=== PATIENT | male | born 2000 | race Caucasian/White ===

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

== ENCOUNTER 2020-02-29 06:32 | Emergency (ER) | payer MEDICAID ==
[2020-02-29 06:54] VITALS: BP 127/78; PULSE 81
--- NOTE | 2020-02-29 07:08 | EDM.PDOC ---
ED HPI GENERAL MEDICAL PROBLEM - General Chief Complaint: Skin Complaint Stated Complaint: REACTION TO MEDS Time Seen by Provider: 02/29/20 07:00 Source of Information: Reports: Patient, Old Records History Limitations: Reports: No Limitations - History of Present Illness INITIAL COMMENTS - FREE TEXT/NARRATIVE: Ana is a 19-year-old male presenting to the ED for evaluation of a rash along the belt line predominantly on the left side that has been developing over the last several days. Patient has attributed to starting his citalopram on 02/21/2020. He was started on this medication for modulation of his mood swings related to his bipolar disorder and disruptive behavior disorder. The patient is employed at [employer] and he states that he is trying to modulate the sy mptoms so that it does not affect his ability to do his job. He reports that after taking the citalopram for several days he started develop a couple red dots on his belt line that were quite itchy. Since then the rash has continued to spread what appears to be along the dermatome. The patient is unclear as to whether or not he had chickenpox as a child, however, he was vaccinated for varicella in 2005. - Related Data Allergies Allergy/AdvReac Type Severity Reaction Status Date / Time No Known Allergies Allergy Verified 02/29/20 06:51 Home Meds: Home Meds ARIPiprazole [Abilify Maintena] 300 mg IM Q30D 02/20/19 [History] Acyclovir 800 mg PO 5XDAY 5 Days #24 tablet 02/29/20 [Rx] Citalopram Hydrobromide [Celexa] 10 mg PO DAILY 02/29/20 [History] hydrOXYzine HCL [Atarax] 25 mg PO Q6H PRN #10 tab 02/29/20 [Rx] Past Medical History HEENT History: Reports: Impaired Vision Respiratory History: Reports: Other (See Below) Other Respiratory History: RSV as child Gastrointestinal History: Reports: Gastritis Neurological History: Reports: Other (See Below) Other Neuro History: head injuries Psychiatric History: Reports: Autism, Psych Hospitalization(s), Other (See Below) Other Psychiatric History: tics, attachment disorder, adjustment disorder with mixed disturbance of emotions and conduct Dermatologic History: Reports: Other (See Below) Other Dermatologic History: skin disorder that causes itches - Past Surgical History Head Surgeries/Procedures: Reports: None HEENT Surgical History: Reports: None Respiratory Surgical History: Reports: None GI Surgical History: Reports: None Neurological Surgical History: Reports: None Dermatological Surgical History: Reports: None Social & Family History - Tobacco Use Tobacco Use Status *Q: Never Tobacco User Second Hand Smoke Exposure: No - Caffeine Use Caffeine Use: Reports: Soda - Recreational Drug Use Recreational Drug Use: No ED ROS GENERAL - Review of Systems Review Of Systems: See Below Constitutional: Reports: No Symptoms HEENT: Reports: No Symptoms. Denies: Throat Pain, Throat Swelling Respiratory: Reports: No Symptoms. Denies: Shortness of Breath, Wheezing Cardiovascular: Reports: No Symptoms Endocrine: Reports: No Symptoms GI/Abdominal: Reports: No Symptoms : Reports: No Symptoms Musculoskeletal: Reports: No Symptoms Skin: Reports: Pruritis, Rash Neurological: Reports: No Symptoms Psychiatric: Reports: No Symptoms Hematologic/Lymphatic: Reports: No Symptoms Immunologic: Reports: No Symptoms. Denies: Anaphylaxis ED EXAM, SKIN/RASH Exam: See Below Exam Limited By: No Limitations General Appearance: Alert, WD/WN, No Apparent Distress Neurological: Alert, Oriented, Normal Cognition, No Motor/Sensory Deficits Skin: Excoriations, Rash (A coalescent vesicular type rash along the belt line on the left. The rash is quite pruritic with varying degrees of excoriation. There does not appear to be any secondary erythema beyond the initial rash.) Associated features: Warmth, Inflammation, Weeping Lymphatic: No Adenopathy Course - Vital Signs Last Recorded V/S: Last Vital Signs Temp 36.1 C 02/29/20 06:53 Pulse 81 02/29/20 06:53 Resp 16 02/29/20 06:53 BP 127/78 02/29/20 06:53 Pulse Ox 96 02/29/20 06:53 - Re-Assessments/Exams Free Text/Narrative Re-Assessment/Exam: 02/29/20 07:59 the patient is presenting with symptoms that he is concerned are related to his citalopram as the patient has only been on this medication for 6 days at this point. I think it would be prudent to stop this medication, however, I am also concerned that this may be development of herpes zoster. The patient is unaware whether he had chickenpox as a child but he did get the varicella vaccine in 2005. Review of up-to-date concerning herpes zoster shows that receiving the varicella vaccine actually increases your risk of developing herpes zoster as an adult. Although the patient is only 19, I cannot completely exclude this as being the source of his rash as it is very consistent with the coalescing vesicles with varying degrees of excoriation. As result, we will start the patient on acyclovir 800 mg 5 times a day for 5 days. I also am going to prescribe him hydroxyzine 25 mg 4 times daily as needed for itching. I encouraged the patient to contact his primary care provider, Niels Medina MD to let him know that we have discontinued the citalopram at this time. I do not believe that steroids are warranted nor is an EpiPen as there are no other signs of allergic reaction. Departure - Departure Time of Disposition: 08:04 Disposition: Home, Self-Care 01 Condition: Good Clinical Impression: Pruritic erythematous rash Herpes zoster Qualifiers: Herpes zoster complications: without complications Qualified Code(s): B02.9 - Zoster without complications - Discharge Information *PRESCRIPTION DRUG MONITORING PROGRAM REVIEWED*: Not Applicable *COPY OF PRESCRIPTION DRUG MONITORING REPORT IN PATIENT HANNAH: Not Applicable Instructions: Rash, Adult, Shingles, [id number] Referrals: PCP,None [Primary Care Provider] - Care Plan Goals: I believe that you have the onset of shingles and I am starting you on a medication called acyclovir which will help treat this. You will need to take 1 tablet 5 times a day for the next 5 days. Make sure that you do not skip a dose. In addition I am giving you a prescription for hydroxyzine 1 tablet every 6 hours as needed to control your itch. The rash may worsen over the course of the next 1 to 2 days before it gets better. You may develop some burning in the area which is typical for this type of rash. I would like you to contact Dr. Medina to let him know that I recommended we stop the citalopram until we know for sure that this is shingles. Sepsis Event Note (ED) - Evaluation Sepsis Screening Result: No Definite Risk - Focused Exam Vital Signs: Vital Signs Temp Pulse Resp BP Pulse Ox 02/29/20 06:53 36.1 C 81 16 127/78 96 - Problem List & Annotations (1) Herpes zoster SNOMED Code(s): 4211494 Code(s): B02.9 - ZOSTER WITHOUT COMPLICATIONS Status: Acute Priority: Low Current Visit: Yes Qualifiers: Herpes zoster complications: without complications Qualified Code(s): B02.9 - Zoster without complications (2) Pruritic erythematous rash SNOMED Code(s): 76819971, 742616853 Code(s): L29.8 - OTHER PRURITUS Status: Acute Priority: Low Current Visit: Yes - Problem List Review Problem List Initiated/Reviewed/Updated: Yes
[2020-02-29] MEDS ORDERED: Acyclovir 200 MG Cap PO ONE (07:17)
[2020-02-29] MEDS ORDERED: hydrOXYzine HCl 25 MG Tab PO ONE (07:21)
== END 2020-02-29 08:13 | disposition home or self-care (01) ==
LOC: JP.ED 06:32
DX: B02.9 Zoster without complications (principal); F84.0 Autistic disorder; Z79.899 Other long term (current) drug therapy
CPT/HCPCS: 36415; 85025; 86140; 99283; A9270

== ENCOUNTER 2020-04-13 23:18 | Emergency (ER) | payer MEDICAID ==
[2020-04-14 00:06] VITALS: BP 132/85; PULSE 70
[2020-04-14] MEDS ORDERED: hydrOXYzine HCl 25 MG Tab PO ONE (00:17)
--- NOTE | 2020-04-14 00:17 | EDM.PDOC ---
ED HPI GENERAL MEDICAL PROBLEM - General Chief Complaint: Skin Complaint Stated Complaint: RASH Time Seen by Provider: 04/14/20 00:06 Source of Information: Reports: Patient History Limitations: Reports: No Limitations - History of Present Illness INITIAL COMMENTS - FREE TEXT/NARRATIVE: Ana a 19-year-old male presenting to the ED with a rash. Patient was seen by me on 02/29/2020 after starting citalopram and initially it was on unilateral distribution in a dermatome suggestive for this being shingles. The rash has not become much more disseminated and involves the arms, legs, trunk, groin, and perirectal area. The rash is exquisitely pruritic and there are number of deep excoriations from the patient repeatedly scratching to the point that he is bleeding. There is an infrapannicular rash that now appears to be cellulitic from excoriation of this region. The patient denies any new solvents at work, no new detergents, no new foods, the only changes are the recent start of Abilify on 02/21/2020 and citalopram on 02/29/2020. The patient has completed a full course of the acyclovir without any improvement. - Related Data Allergies Allergy/AdvReac Type Severity Reaction Status Date / Time No Known Allergies Allergy Verified 04/14/20 00:06 Home Meds: Home Meds ARIPiprazole [Abilify Maintena] 300 mg IM Q30D 02/20/19 [History] Acyclovir 800 mg PO 5XDAY 5 Days #24 tablet 02/29/20 [Rx] Citalopram Hydrobromide [Celexa] 10 mg PO DAILY 02/29/20 [History] hydrOXYzine pamoate [Hydroxyzine Pamoate] 25 mg PO Q6H PRN #30 capsule 04/14/20 [Rx] Past Medical History HEENT History: Reports: Impaired Vision Respiratory History: Reports: Other (See Below) Other Respiratory History: RSV as child Gastrointestinal History: Reports: Gastritis Neurological History: Reports: Other (See Below) Other Neuro History: head injuries Psychiatric History: Reports: Autism, Psych Hospitalization(s), Other (See Be low) Other Psychiatric History: tics, attachment disorder, adjustment disorder with mixed disturbance of emotions and conduct Dermatologic History: Reports: Other (See Below) Other Dermatologic History: skin disorder that causes itches - Past Surgical History Head Surgeries/Procedures: Reports: None HEENT Surgical History: Reports: None Respiratory Surgical History: Reports: None GI Surgical History: Reports: None Neurological Surgical History: Reports: None Dermatological Surgical History: Reports: None Social & Family History - Caffeine Use Caffeine Use: Reports: Soda ED ROS GENERAL - Review of Systems Review Of Systems: See Below Constitutional: Reports: No Symptoms HEENT: Reports: No Symptoms Respiratory: Reports: No Symptoms Cardiovascular: Reports: No Symptoms Endocrine: Reports: No Symptoms GI/Abdominal: Reports: No Symptoms : Reports: No Symptoms Musculoskeletal: Reports: No Symptoms Skin: Reports: Pruritis, Rash (A maculopapular rash on the arms, legs, chest, back, abdomen, and perirectal area. There is no evidence for a herald patch.), Erythema, Wound Neurological: Reports: No Symptoms Psychiatric: Reports: No Symptoms Hematologic/Lymphatic: Reports: No Symptoms Immunologic: Reports: No Symptoms ED EXAM, SKIN/RASH Exam: See Below Exam Limited By: No Limitations General Appearance: Alert, Mild Distress Respiratory/Chest: No Respiratory Distress, Lungs Clear, Normal Breath Sounds Cardiovascular: Normal Peripheral Pulses, Regular Rate, Rhythm, No Murmur Neurological: Alert, Oriented, Normal Cognition, No Motor/Sensory Deficits Skin: Erythema, Rash (Filler papular rash disseminated throughout the body sparing the face and head. There is no evidence for herald patch. The rash is very pruritic. There is excoriations inferior to the panniculus from deep excoriation which is likely now cellulitic. He has deep excoriations on the right leg.) Location, Skin: Chest, Abdomen, Back, Upper Extremity, Right, Upper Extremity, Left, Lower Extremity, Right, Lower Extremity, Left, Perirectal Characteristics: Maculopapular Associated features: Warmth (Below the panniculus), Tenderness (The panniculus), Inflammation Lymphatic: No Adenopathy Course - Vital Signs Last Recorded V/S: Last Vital Signs Temp 36.6 C 04/14/20 00:05 Pulse 70 04/14/20 00:05 Resp 16 04/14/20 00:05 BP 132/85 04/14/20 00:05 Pulse Ox 99 04/14/20 00:05 - Re-Assessments/Exams Free Text/Narrative Re-Assessment/Exam: 04/14/20 00:26 the rash would be consistent with Pityriasis rosea except there is no evidence for a herald patch. It is a maculopapular rash with a rough texture that is disseminated throughout the body excluding the head or face. The area under the panniculus appears to be cellulitic from no deep excoriation. He also has deep excoriations on the right lower extremity. My plan is to put him on Keflex for the cellulitis on the abdomen. We will also put him on hydroxyzine for the itching. The patient should follow-up on Wednesday with his primary care provider to discuss whether this is a reaction to his citalopram or Abilify. I do think that he will probably need to be seen by dermatology for skin biopsy to further define what is causing his rash. Initially we thought that this may have been herpes zoster and put him on acyclovir, however, there is been no improvement and now it has become more disseminated. I do not have much else to offer him in the ER at this time. Departure - Departure Time of Disposition: 00:29 Disposition: Home, Self-Care 01 Clinical Impression: Pruritic rash, Cellulitis of abdominal wall - Discharge Information *PRESCRIPTION DRUG MONITORING PROGRAM REVIEWED*: Not Applicable *COPY OF PRESCRIPTION DRUG MONITORING REPORT IN PATIENT HANNAH: Not Applicable Instructions: Cellulitis, Adult, Rash, Adult, [id number] Referrals: PCP,None [Primary Care Provider] - Care Plan Goals: The plan is to put you on hydroxyzine for the itch. We will give you a dose here in the emergency room and then I have a prescription for you to fill at the pharmacy in the morning. I am also putting you on Keflex which is an antibiotic for the skin infection on your abdomen. This is available in the [employer] machine in the lobby of the ER so that you can start at this evening. I would recommend following up with your primary care provider who is prescribing the Abilify and citalopram and discuss with them if this possibly is due to those medications. You may also require a referral to dermatology for further evaluation would need to come from your primary care provider. Sepsis Event Note (ED) - Focused Exam Vital Signs: Vital Signs Temp Pulse Resp BP Pulse Ox 04/14/20 00:05 36.6 C 70 16 132/85 99 - Problem List & Annotations (1) Cellulitis of abdominal wall SNOMED Code(s): 00013558 Code(s): L03.311 - CELLULITIS OF ABDOMINAL WALL Status: Acute Priority: Medium Current Visit: Yes (2) Pruritic rash SNOMED Code(s): 46762777 Code(s): L28.2 - OTHER PRURIGO Status: Acute Priority: Medium Current Visit: Yes - Problem List Review Problem List Initiated/Reviewed/Updated: Yes
== END 2020-04-14 00:51 | disposition home or self-care (01) ==
LOC: JP.ED 23:18
DX: R21 Rash and other nonspecific skin eruption (principal); L03.311 Cellulitis of abdominal wall
CPT/HCPCS: 99282; 99283; A9270

== ENCOUNTER 2020-05-25 13:27 | Emergency (ER) | payer MEDICAID ==
[2020-05-25 14:31] VITALS: BP 113/80; PULSE 94
--- NOTE | 2020-05-25 15:36 | EDM.PDOC ---
ED HPI GENERAL MEDICAL PROBLEM - General Chief Complaint: Respiratory Problem Stated Complaint: COUGH Time Seen by Provider: 05/25/20 15:32 Source of Information: Reports: Patient, RN Notes Reviewed History Limitations: Reports: No Limitations - History of Present Illness INITIAL COMMENTS - FREE TEXT/NARRATIVE: 19-year-old male presents emergency department like to be tested for Covid before he goes to work has had a cough for 2 days Throat Pain Score (Numeric/FACES): 6 - Related Data Allergies Allergy/AdvReac Type Severity Reaction Status Date / Time No Known Allergies Allergy Verified 05/25/20 14:32 Home Meds: Home Meds ARIPiprazole [Abilify Maintena] 300 mg IM Q30D 02/20/19 [History] Citalopram Hydrobromide [Celexa] 10 mg PO DAILY 02/29/20 [History] hydrOXYzine pamoate [Hydroxyzine Pamoate] 25 mg PO Q6H PRN #30 capsule 04/14/20 [Rx] Sertraline HCl 25 mg PO DAILY 05/25/20 [History] Past Medical History HEENT History: Reports: Impaired Vision Respiratory History: Reports: Other (See Below) Other Respiratory History: RSV as child Gastrointestinal History: Reports: Gastritis Musculoskeletal History: Reports: None Neurological History: Reports: Head Trauma Other Neuro History: head injuries Psychiatric History: Reports: Autism, Psych Hospitalization(s), Other (See Below) Other Psychiatric History: tics, attachment disorder, adjustment disorder with mixed disturbance of emotions and conduct Endocrine/Metabolic History: Reports: None Hematologic History: Reports: None Immunologic History: Reports: None Oncologic (Cancer) History: Reports: None Dermatologic History: Reports: Other (See Below) Other Dermatologic History: skin disorder that causes itches - Infectious Disease History Infectious Disease History: Reports: None - Past Surgical History Head Surgeries/Procedures: Reports: None HEENT Surgical History: Reports: None Respiratory Surgical History: Reports: None GI Surgical History: Reports: None Neurological Surgical History: Reports: None Dermatological Surgical History: Reports: None Social & Family History - Caffeine Use Caffeine Use: Reports: Energy Drinks, Soda - Recreational Drug Use Recreational Drug Use: No ED ROS GENERAL - Review of Systems Review Of Systems: See Below Constitutional: Reports: No Symptoms Respiratory: Reports: Cough Cardiovascular: Reports: No Symptoms ED EXAM, GENERAL - Physical Exam Exam: See Below Exam Limited By: No Limitations General Appearance: Alert, WD/WN, No Apparent Distress Respiratory/Chest: No Respiratory Distress, Lungs Clear, Normal Breath Sounds, No Accessory Muscle Use, Chest Non-Tender Cardiovascular: Regular Rate, Rhythm, No Murmur Course - Vital Signs Last Recorded V/S: Last Vital Signs Temp 98.2 F 05/25/20 14:31 Pulse 94 05/25/20 14:31 Resp 18 05/25/20 14:31 BP 113/80 05/25/20 14:31 Pulse Ox 100 05/25/20 14:31 - Orders/Labs/Meds Labs: Laboratory Tests 05/25/20 Range/Units 15:41 SARS CoV-2 RNA Rapid BHARGAV Negative Departure - Departure Time of Disposition: 16:06 Disposition: Home, Self-Care 01 Condition: Fair Clinical Impression: Viral syndrome - Discharge Information Instructions: Viral Illness, Adult Referrals: Niels Medina MD [Primary Care Provider] - Forms: ED Department Discharge Additional Instructions: Symptomatic care, please followup with your primary care provider in 3-5 days if not better, please call return to the emergency department with worsening of symptoms. Sepsis Event Note (ED) - Evaluation Sepsis Screening Result: No Definite Risk - Focused Exam Vital Signs: Vital Signs Temp Pulse Resp BP Pulse Ox 05/25/20 14:31 98.2 F 94 18 113/80 100 05/25/20 14:28 98.2 F 94 18 113/80 100 - Assessment/Plan Plan: Assessment Acuity = acute Site and laterality = viral syndrome Etiology = unknown Manifestations = none Location of injury = Home Lab values = Covid was negative Plan Follow-up primary care 3 to 5 days if not better This note was dictated using [employer] voice recognition software please call with any questions on syntax or grammar.
== END 2020-05-25 16:52 | disposition home or self-care (01) ==
LOC: JP.ED 13:27
DX: B34.9 Viral infection, unspecified (principal); Z20.822 Contact with and (suspected) exposure to COVID-19; Z79.899 Other long term (current) drug therapy
CPT/HCPCS: 99283; U0002

== ENCOUNTER 2020-06-23 05:11 | Emergency (ER) | payer MEDICAID ==
[2020-06-23 05:34] VITALS: BP 133/83; PULSE 87
--- NOTE | 2020-06-23 05:44 | EDM.PDOC ---
ED HPI GENERAL MEDICAL PROBLEM - General Chief Complaint: ENT Problem Stated Complaint: COUGHING BLOOD Time Seen by Provider: 06/23/20 05:38 Source of Information: Reports: Patient History Limitations: Reports: No Limitations - History of Present Illness INITIAL COMMENTS - FREE TEXT/NARRATIVE: Ana is a 19-year-old male presenting to the ED for evaluation of a painful, swollen throat that started several days ago and has continued to worsen. Patient reports that he was coughing today and coughed up some blood. He looked in the back of his mouth and saw it was red, swollen, and he had sores. He denies any fever or chills. He does say it is quite painful to swallow. The cough is been nonproductive except for the episode of streaks of blood. He denies any shortness of breath. Throat Pain Score (Numeric/FACES): 7 - Related Data Allergies Allergy/AdvReac Type Severity Reaction Status Date / Time No Known Allergies Allergy Verified 06/23/20 05:30 Home Meds: Home Meds ARIPiprazole [Abilify Maintena] 300 mg IM Q30D 02/20/19 [History] Sertraline HCl 25 mg PO DAILY 05/25/20 [History] Past Medical History HEENT History: Reports: Impaired Vision Cardiovascular History: Reports: None Respiratory History: Reports: Other (See Below) Other Respiratory History: RSV as child Gastrointestinal History: Reports: Gastritis Genitourinary History: Reports: None Musculoskeletal History: Reports: None Neurological History: Reports: Head Trauma Other Neuro History: head injuries Psychiatric History: Reports: Autism, Psych Hospitalization(s), Other (See Below) Other Psychiatric History: tics, attachment disorder, adjustment disorder with mixed disturbance of emotions and conduct Endocrine/Metabolic History: Reports: None Hematologic History: Reports: None Immunologic History: Reports: None Oncologic (Cancer) History: Reports: None Dermatologic History: Reports: Other (See Below) Other Dermatologic History: skin disorder that causes itches - Infectious Disease History Infectious Disease History: Reports: None - Past Surgical History Head Surgeries/Procedures: Reports: None HEENT Surgical History: Reports: None Respiratory Surgical History: Reports: None GI Surgical History: Reports: None Neurological Surgical History: Reports: None Dermatological Surgical History: Reports: None Social & Family History - Caffeine Use Caffeine Use: Reports: Energy Drinks, Soda - Recreational Drug Use Recreational Drug Use: No ED ROS ENT - Review of Systems Review Of Systems: See Below Constitutional: Reports: No Symptoms HEENT: Reports: Throat Pain, Throat Swelling Respiratory: Reports: Cough, Hemoptysis Cardiovascular: Reports: No Symptoms Endocrine: Reports: No Symptoms GI/Abdominal: Reports: No Symptoms : Reports: No Symptoms Musculoskeletal: Reports: No Symptoms Skin: Reports: No Symptoms Neurological: Reports: No Symptoms Psychiatric: Reports: No Symptoms Hematologic/Lymphatic: Reports: No Symptoms ED EXAM, ENT - Physical Exam Exam: See Below Exam Limited By: No Limitations General Appearance: Alert, Anxious, Mild Distress Eye Exam: Bilateral Eye: EOMI, PERRL Nose: Normal Inspection Mouth/Throat: Pharyngeal Erythema, Tonsillar Erythema, Tonsillar Exudates, Tonsillar Swelling Head: Atraumatic, Normocephalic Neck: Normal Inspection, Supple. No: Lymphadenopathy (R), Lymphadenopathy (L) Respiratory/Chest: No Respiratory Distress, Lungs Clear, Normal Breath Sounds Cardiovascular: Normal Peripheral Pulses, Regular Rate, Rhythm, No Murmur GI/Abdominal: Normal Bowel Sounds, Soft, Non-Tender Back: Normal Inspection Neurological: Alert, Oriented, Normal Cognition, No Motor/Sensory Deficits Skin: Warm, Dry, No Rash Lymphatic: No Adenopathy Course - Vital Signs Last Recorded V/S: Last Vital Signs Temp 36.3 C 06/23/20 05:32 Pulse 87 06/23/20 05:32 Resp 18 06/23/20 05:32 BP 133/83 06/23/20 05:32 Pulse Ox 97 06/23/20 05:32 - Orders/Labs/Meds Labs: Laboratory Tests 06/23/20 Range/Units 05:41 Monoscreen Negative (NEGATIVE) - Re-Assessments/Exams Free Text/Narrative Re-Assessment/Exam: 06/23/20 05:59 I reviewed the patient's labs. He does have strep pharyngitis. His Monospot was negative. We will put him on Augmentin 875 mg twice daily for 7 days. Departure - Departure Time of Disposition: 05:59 Disposition: Home, Self-Care 01 Clinical Impression: Acute streptococcal pharyngitis - Discharge Information Instructions: Strep Throat, Adult, [id number] Referrals: PCP,None [Primary Care Provider] - Forms: ED Department Discharge Care Plan Goals: And placing you on Augmentin 875 mg. Please take 1 tablet twice daily for 7 days to help clear this infection. You may want to purchase [id number] Sucrets or Chloraseptic to help with the pain. You may take Tylenol or ibuprofen as well. You may like to do salt water gargles to help soothe your throat. Sepsis Event Note (ED) - Evaluation Sepsis Screening Result: No Definite Risk - Focused Exam Vital Signs: Vital Signs Temp Pulse Resp BP Pulse Ox 06/23/20 05:32 36.3 C 87 18 133/83 97 - Problem List & Annotations (1) Acute streptococcal pharyngitis SNOMED Code(s): 54064526, 322239647 Code(s): J02.0 - STREPTOCOCCAL PHARYNGITIS Status: Acute Priority: Medium Current Visit: Yes - Problem List Review Problem List Initiated/Reviewed/Updated: Yes
== END 2020-06-23 06:06 | disposition home or self-care (01) ==
LOC: JP.ED 05:11
DX: J02.0 Streptococcal pharyngitis (principal); Z79.899 Other long term (current) drug therapy
CPT/HCPCS: 36415; 86308; 87880-QW; 99283; 99284

== ENCOUNTER 2021-02-27 08:40 | Emergency (ER) | payer MEDICAID ==
[2021-02-27 08:56] VITALS: BP 128/56; PULSE 129
[2021-02-27 09:42] LABS: CORONAVIRUS COVID-19 NAA POSITIVE (NEGATIVE)
== END 2021-02-27 11:49 | disposition home or self-care (01) ==
LOC: JP.ED 08:40
DX: U07.1 COVID-19 (principal); Z72.0 Tobacco use
CPT/HCPCS: 0241U; 36415; 80053; 85025; 85379; 99283

== ENCOUNTER 2021-03-29 21:35 | Emergency (ER) | payer OTHER, MEDICAID ==
[2021-03-29 21:51] VITALS: BP 117/72; PULSE 96
== END 2021-03-29 22:49 | disposition home or self-care (01) ==
LOC: JP.ED 21:35
DX: S06.0X0A Concussion without loss of consciousness, initial encounter (principal); S00.03XA Contusion of scalp, initial encounter; W22.09XA Striking against other stationary object, initial encounter; Y99.0 Civilian activity done for income or pay
CPT/HCPCS: 99282; 99283

== ENCOUNTER 2021-07-23 08:53 | Emergency (ER) | payer MEDICAID, OTHER ==
[2021-07-23 09:08] VITALS: BP 121/81; PULSE 75
== END 2021-07-23 09:35 | disposition home or self-care (01) ==
LOC: JP.ED 08:53
DX: M79.89 Other specified soft tissue disorders (principal)
CPT/HCPCS: 99281; 99283

== ENCOUNTER 2021-08-31 16:16 | Emergency (ER) | payer MEDICAID | END 2021-08-31 17:21 | disposition left against medical advice (07) | LOC: JP.ED 16:16 | DX: Z53.21 Procedure and treatment not carried out due to patient leaving prior to being seen by health care provider (principal) ==

== ENCOUNTER 2021-08-31 22:26 | Emergency (ER) | payer MEDICAID | END 2021-09-01 00:11 | disposition left against medical advice (07) | LOC: JP.ED 22:26 | DX: Z53.21 Procedure and treatment not carried out due to patient leaving prior to being seen by health care provider (principal) ==

== ENCOUNTER 2021-09-25 21:39 | Emergency (ER) | payer OTHER, MEDICAID ==
[2021-09-25 22:02] VITALS: BP 120/66; PULSE 77
== END 2021-09-25 23:42 | disposition home or self-care (01) ==
LOC: JP.ED 21:39
DX: S63.502A Unspecified sprain of left wrist, initial encounter (principal); F17.210 Nicotine dependence, cigarettes, uncomplicated; Z79.899 Other long term (current) drug therapy; X50.0XXA Overexertion from strenuous movement or load, initial encounter; Y99.0 Civilian activity done for income or pay
CPT/HCPCS: 73110-26-LT; 73110-LT; 99283